=== PATIENT | male | born 1985 ===

== ENCOUNTER 2017-03-05 19:52 | Emergency (ER) | payer MEDICAID ==
[2017-03-05 19:52] VITALS: BMI 27.2
[2017-03-05 19:57] VITALS: BP 126/87; PULSE 80; RESP 16; TEMP 98.2; O2SAT 95
--- NOTE | 2017-03-05 20:24 | ED PDOC ---
Arrival/HPI - General Chief Complaint: Abnormal Skin Integrity Time Seen by Provider: 03/05/17 20:04 Historian: Patient - History of Present Illness Narrative History of Present Illness (Text): 03/05/17 20:21 31 y.o. male who comes to the emergency department with an itchy rash in the groin x 2 weeks. He says it started when he was in [place] a few weeks ago and it was hot and he had tight clothing. No abd pain or fever or urinary symptoms. He also says he began to have pimples in the area that he popped and put neosporin. Time/Duration: > week Past Medical History - Infectious Disease Hx of Infectious Diseases: None - Tetanus Immunization Tetanus Immunization: Up to Date - Past Medical History Past Medical History: No Previous - Cardiac Hx Cardiac Disorders: No - Pulmonary Hx Respiratory Disorders: No Hx Asthma: Yes - Neurological Hx Migraine: Yes - HEENT Hx HEENT Disorder: No - Renal Hx Renal Disorder: No - Endocrine/Metabolic Hx Endocrine Disorders: No - Hematological/Oncological Hx Blood Disorders: No - Integumentary Hx Dermatological Disorder: No - Musculoskeletal/Rheumatological Hx Musculoskeletal Disorders: Yes Hx Herniated Disk: Yes - Gastrointestinal Hx Gastrointestinal Disorders: Yes (GASTROENTERITIS) - Genitourinary/Gynecological Hx Genitourinary Disorders: No - Psychiatric Hx Psychophysiologic Disorder: No Hx Substance Use: No - Past Surgical History Past Surgical History: No Previous - Anesthesia Hx Anesthesia: No Hx Anesthesia Reactions: No Hx Malignant Hyperthermia: No - Suicidal Assessment Feels Threatened In Home Enviroment: No Family/Social History Family/Social History: Unknown Family HX Smoking Status: Heavy Smoker > 10 Cigarettes Daily Hx Alcohol Use: Yes (quit) Hx Substance Use: No Substance used: Marijuana Hx Substance Use Treatment: No Allergies/Home Meds Allergies/Adverse Reactions: Allergies No Known Allergies Allergy (Verified 03/05/17 19:53) Review of Systems - Review of Systems Constitutional: absent: Fevers Gastrointestinal: absent: Abdominal Pain, Nausea, Vomiting Genitourinary Male: absent: Dysuria Skin: Rash, Pruritis Physical Exam Vital Signs Temp Pulse Resp BP Pulse Ox 03/05/17 19:56 98.2 F 80 16 126/87 95 Temperature: Afebrile Blood Pressure: Normal Pulse: Regular Respiratory Rate: Normal Appearance: Positive for: Well-Appearing, Non-Toxic, Comfortable Pain Distress: None Mental Status: Positive for: Alert and Oriented X 3 - Systems Exam Head: Present: Atraumatic, Normocephalic Abdomen: No: Tenderness, Distention Genitourinary Male: Present: Normal External Genitalia, Other (groin area of dry rash c/w tinea and few small areas of folliculits but no erythema or warmth or swelling or tenderness) Medical Decision Making ED Course and Treatment: 03/05/17 20:24 Findings consistnent with tinea cruris and mild folliculitis - will d/c on topical antifungal and bactroban. Disposition/Present on Arrival - Present on Arrival Any Indicators Present on Arrival: No History of DVT/PE: No History of Uncontrolled Diabetes: No Urinary Catheter: No History of Decub. Ulcer: No History Surgical Site Infection Following: None - Disposition Have Diagnosis and Disposition been Completed?: Yes Diagnosis: Tinea cruris, Folliculitis Disposition: HOME/ ROUTINE Disposition Time: 20:30 Patient Plan: Discharge Condition: GOOD Discharge Instructions (ExitCare): Hai Sagastume (ED) Additional Instructions: Avoid tight clothing/underwear around groin and keep area dry. Apply topical medications as prescribed. Follow up with your primary care doctor. Return to the emergency department if any new concerning symptoms. Prescriptions: Ketoconazole 2% Cr [Nizoral] 1 cre EXT BID #30 gm Mupirocin 2% Cream [Bactroban Cream] 1 cre TOP BID #30 gm Referrals: Juhi Akers DO [Primary Care Provider] - Follow up with primary
== END 2017-03-05 20:45 | disposition home or self-care (01) ==
LOC: ED 19:52
DX: B35.6 Tinea cruris (principal); L73.9 Follicular disorder, unspecified

== ENCOUNTER 2017-08-22 08:18 | Emergency (ER) | payer MEDICAID ==
[2017-08-22 08:18] VITALS: BMI 27.2
--- NOTE | 2017-08-22 08:57 | ED PDOC ---
Arrival/HPI - General Chief Complaint: Cough, Cold, Congestion Time Seen by Provider: 08/22/17 08:41 Historian: Patient - History of Present Illness Narrative History of Present Illness (Text): 08/22/17 08:54 A 31 year old male with no significant past medical history, presents to the emergency department with 4 day duration cough, congestions The patient notes that yesterday he developed a dry cough. pt reports sore throat, which is mild. The patient denies fevers, chills, headache, shortness of breath, dyspnea on exertion, abdominal pain, nausea, vomiting, diarrhea, back pain, neck pain, urinary/bowel changes, or any other complaint. 08/22/17 09:50 Time/Duration: Other (4 Days) Symptom Onset: Sudden Symptom Course: Unchanged Activities at Onset: Rest, Light Context: Work Past Medical History - Provider Review Nursing Documentation Reviewed: Yes - Infectious Disease Hx of Infectious Diseases: None - Tetanus Immunization Tetanus Immunization: Up to Date - Past Medical History Past Medical History: No Previous - Cardiac Hx Cardiac Disorders: No - Pulmonary Hx Respiratory Disorders: Yes Hx Asthma: Yes - Neurological Hx Neurological Disorder: Yes Hx Migraine: Yes - HEENT Hx HEENT Disorder: No - Renal Hx Renal Disorder: No - Endocrine/Metabolic Hx Endocrine Disorders: No - Hematological/Oncological Hx Blood Disorders: No - Integumentary Hx Dermatological Disorder: No - Musculoskeletal/Rheumatological Hx Musculoskeletal Disorders: Yes Hx Herniated Disk: Yes - Gastrointestinal Hx Gastrointestinal Disorders: No - Genitourinary/Gynecological Hx Genitourinary Disorders: No - Psychiatric Hx Psychophysiologic Disorder: No Hx Substance Use: No - Past Surgical History Past Surgical History: No Previous - Anesthesia Hx Anesthesia: No Hx Anesthesia Reactions: No Hx Malignant Hyperthermia: No - Suicidal Assessment Feels Threatened In Home Enviroment: No Family/Social History - Physician Review Nursing Documentation Reviewed: Yes Family/Social History: No Known Family HX Smoking Status: Heavy Smoker > 10 Cigarettes Daily Hx Alcohol Use: No Hx Substance Use: No Substance used: Marijuana Hx Substance Use Treatment: No Allergies/Home Meds Allergies/Adverse Reactions: Allergies No Known Allergies Allergy (Verified 08/22/17 08:27) Home Medications: Home Meds Medication Instructions Recorded Confirmed No Known Home Med 08/22/17 08/22/17 Review of Systems - Physician Review All systems were reviewed & negative as marked: Yes - Review of Systems Constitutional: absent: Fevers, Night Sweats ENT: Sore Throat Respiratory: Cough. absent: SOB Cardiovascular: Chest Pain. absent: WHITE Gastrointestinal: absent: Abdominal Pain, Stool Changes, Diarrhea, Nausea, Vomiting Genitourinary Male: absent: Urinary Output Changes Musculoskeletal: absent: Back Pain, Neck Pain Neurological: Dizziness. absent: Headache Physical Exam Vital Signs Reviewed: Yes Vital Signs Temp Pulse Resp BP Pulse Ox 08/22/17 09:30 98.9 F 74 20 132/78 96 08/22/17 08:27 97.8 F 77 16 117/85 97 Temperature: Afebrile Blood Pressure: Normal Pulse: Regular Respiratory Rate: Normal Appearance: Positive for: Well-Appearing, Non-Toxic, Comfortable Pain Distress: None Mental Status: Positive for: Alert and Oriented X 3 - Systems Exam Head: Present: Atraumatic, Normocephalic Pupils: Present: PERRL Extroacular Muscles: Present: EOMI Conjunctiva: Present: Normal Mouth: Present: Moist Mucous Membranes Neck: Present: Normal Range of Motion Respiratory/Chest: Present: Clear to Auscultation, Good Air Exchange. No: Respiratory Distress, Accessory Muscle Use Cardiovascular: Present: Regular Rate and Rhythm, Normal S1, S2. No: Murmurs Abdomen: Present: Normal Bowel Sounds. No: Tenderness, Distention, Peritoneal Signs Back: Present: Normal Inspection Upper Extremity: Present: Normal Inspection. No: Cyanosis, Edema Lower Extremity: Present: Normal Inspection. No: Edema Neurological: Present: GCS=15, CN II-XII Intact, Speech Normal Skin: Present: Warm, Dry, Normal Color. No: Rashes Psychiatric: Present: Alert, Oriented x 3, Normal Insight, Normal Concentration Medical Decision Making ED Course and Treatment: 08/22/17 08:58 Impression: A 31 year old male presents with 4 day duration chest pain, cough, dizziness, and sore throat. Plan: -- Chest X-ray -- Reassess and disposition Prior Visits: Notes and results from previous visits were reviewed. Patient was last seen in the emergency department on 03/05/17. The patient was seen for a rash on the groin. The patient was discharged home on Nizoral and Bactroban Cream. He was advised to follow up with his PMD. Progress Notes: 08/22/17 10:54 pt on phone in nad. speaking full sentneces, strep neg. vital stable. perc neg. cxr neg. stable for d/c outpt f/u and return precautions - Lab Interpretations Lab Results: Lab Results 08/22/17 10:12: Grp A Beta Strep Ag Negative - RAD Interpretation Radiology Orders: 08/22/17 08:45 CHEST TWO VIEWS (PA/LAT) [RAD] Stat - Scribe Statement The provider has reviewed the documentation as recorded by the Scribe Cecilia Marr Provider Scribe Attestation: All medical record entries made by the Scribe were at my direction and personally dictated by me. I have reviewed the chart and agree that the record accurately reflects my personal performance of the history, physical exam, medical decision making, and the department course for this patient. I have also personally directed, reviewed, and agree with the discharge instructions and disposition. Disposition/Present on Arrival - Present on Arrival Any Indicators Present on Arrival: No History of DVT/PE: No History of Uncontrolled Diabetes: No Urinary Catheter: No History of Decub. Ulcer: No History Surgical Site Infection Following: None - Disposition Have Diagnosis and Disposition been Completed?: Yes Diagnosis: Viral syndrome Disposition: HOME/ ROUTINE Disposition Time: 11:00 Patient Problems: Current Active Problems Problem Status Onset Viral syndrome Acute Condition: STABLE Discharge Instructions (ExitCare): Viral Syndrome (ED) Additional Instructions: please follow up with your doctor. return to er with worsening symptoms or concerns. Referrals: [facility] [Outside] - Follow up with primary [facility] [place] [Outside] - Follow up with primary Forms: [employer] (American)
--- NOTE | 2017-08-22 10:49 | RAD ---
HISTORY: COMPARISON: 08/23/2015. TECHNIQUE: Chest PA and lateral FINDINGS: LINES AND TUBES: None. LUNG AND PLEURA: The lungs are well inflated and clear. HEART AND MEDIASTINUM: The heart is not enlarged. The hilar and mediastinal contours are within normal limits. SKELETAL STRUCTURES: The bony structures are within normal limits for the patient's age. VISUALIZED UPPER ABDOMEN: Normal. OTHER FINDINGS: None. IMPRESSION: No active pulmonary disease.
[2017-08-22 11:15] VITALS: BP 128/76; RESP 18
[2017-08-22 11:25] VITALS: O2SAT 96
[2017-08-22 11:27] VITALS: PULSE 73; TEMP 98
== END 2017-08-22 11:00 | disposition home or self-care (01) ==
LOC: ED 08:18
DX: B34.9 Viral infection, unspecified (principal); J45.909 Unspecified asthma, uncomplicated; F17.210 Nicotine dependence, cigarettes, uncomplicated

== ENCOUNTER 2017-11-20 21:02 | Emergency (ER) | payer MEDICAID ==
[2017-11-20 21:19] VITALS: BP 114/73; PULSE 80; RESP 20; TEMP 98; O2SAT 97
[2017-11-20 21:20] VITALS: BMI 27.1
--- NOTE | 2017-11-20 21:27 | ED PDOC ---
Arrival/HPI - General Historian: Patient <Thalia Grossman - Last Filed: 11/20/17 22:43> - History of Present Illness Time/Duration: < week Symptom Onset: Gradual Quality: Aching <Davy Lizarraga DO - Last Filed: 11/21/17 04:19> - General Chief Complaint: Chest Pain Time Seen by Provider: 11/20/17 21:12 - History of Present Illness Narrative History of Present Illness (Text): CC: chest pressure midsternal 31M presents with midsternal chest pain that started two days ago. Patient states it feels like a pressure and is worried because hi mother from [place] at 61 and his father was recently hospitalized for CT. Patient states the pressure is always there and never leaves, it gets a little better, but stays. Patient also admits to left flank pain for 2 weeks, with dysuria for one day. Patient denies hematuria, penile discharge, oliguria, history of nephrolithiasis. PMH: lumbar disc herniations (chronic back pain) PSH: none Social History:3-4 cigarettes a day, no etoh, no illicit drugs Family History: mother and father had CT allergies: NKDA (Thalia Grossman) Past Medical History - Infectious Disease Hx of Infectious Diseases: None - Tetanus Immunization Tetanus Immunization: Up to Date - Past Medical History Past Medical History: No Previous - Cardiac Hx Cardiac Disorders: No - Pulmonary Hx Respiratory Disorders: Yes Hx Asthma: Yes - Neurological Hx Neurological Disorder: Yes Hx Migraine: Yes - HEENT Hx HEENT Disorder: No - Renal Hx Renal Disorder: No - Endocrine/Metabolic Hx Endocrine Disorders: No - Hematological/Oncological Hx Blood Disorders: No - Integumentary Hx Dermatological Disorder: No - Musculoskeletal/Rheumatological Hx Musculoskeletal Disorders: Yes Hx Herniated Disk: Yes - Gastrointestinal Hx Gastrointestinal Disorders: No - Genitourinary/Gynecological Hx Genitourinary Disorders: No - Psychiatric Hx Psychophysiologic Disorder: No Hx Substance Use: No (Pt denied) - Past Surgical History Past Surgical History: No Previous - Anesthesia Hx Anesthesia: No Hx Anesthesia Reactions: No Hx Malignant Hyperthermia: No - Suicidal Assessment Feels Threatened In Home Enviroment: No <Thalia Grossman - Last Filed: 11/20/17 22:43> - Provider Review Nursing Documentation Reviewed: Yes <Davy Lizarraga DO - Last Filed: 11/21/17 04:19> Family/Social History - Physician Review Nursing Documentation Reviewed: Yes Family/Social History: No Known Family HX Smoking Status: Light Smoker < 10 Cigarettes Daily Hx Alcohol Use: No Hx Substance Use: No (Pt denied) Substance used: Marijuana Hx Substance Use Treatment: No <Thalia Grossman - Last Filed: 11/20/17 22:43> Allergies/Home Meds <Thalia Grossman - Last Filed: 11/20/17 22:43> <Davy Lizarraga DO - Last Filed: 11/21/17 04:19> Allergies/Adverse Reactions: Allergies No Known Allergies Allergy (Verified 11/20/17 21:09) Home Medications: Home Meds Medication Instructions Recorded Confirmed No Known Home Med 08/22/17 11/20/17 Review of Systems - Physician Review All systems were reviewed & negative as marked: Yes - Review of Systems Constitutional: Normal. absent: Fatigue, Weight Change, Fevers Eyes: Normal. absent: Vision Changes, Photophobia, Eye Pain Respiratory: SOB. absent: Cough, Sputum, Wheezing Cardiovascular: Chest Pain. absent: Palpitations, Edema, Calf Pain, Orthopnea Gastrointestinal: Nausea. absent: Abdominal Pain, Stool Changes, Constipation, Diarrhea, Vomiting, Appetite Changes, Hematochezia, Hematemesis, Anorexia, Food Intolerance Musculoskeletal: Back Pain (left flank pain and chronic lumbar herniation). absent: Arthralgias Skin: Normal Endocrine: Normal Hemo/Lymphatic: Normal Psychiatric: Normal <Thalia Grossman - Last Filed: 11/20/17 22:43> Physical Exam Temperature: Afebrile Blood Pressure: Normal Pulse: Regular Respiratory Rate: Normal Appearance: Positive for: Comfortable Mental Status: Positive for: Alert and Oriented X 3 - Systems Exam Head: Present: Atraumatic, Normocephalic Pupils: Present: PERRL Extroacular Muscles: Present: EOMI Conjunctiva: Present: Normal. No: Injected, Icteric Pharnyx: Present: Normal. No: ERYTHEMA, EXUDATE, TONSILS ENLARGED, Uvular Deviation Nose (External): Present: Atraumatic. No: Abrasion, Contusion, Laceration Neck: Present: Normal Range of Motion, Trachea Midline. No: JVD Respiratory/Chest: Present: Clear to Auscultation, Good Air Exchange. No: Respiratory Distress Cardiovascular: Present: Regular Rate and Rhythm, Normal S1, S2. No: Murmurs Upper Extremity: Present: Normal Inspection, Normal ROM, Capillary Refill < 2s Lower Extremity: Present: Normal Inspection, Normal ROM, Capillary Refill < 2 s. No: Edema Neurological: Present: GCS=15, CN II-XII Intact Skin: Present: Warm, Dry, Normal Color. No: Rashes Psychiatric: Present: Alert, Oriented x 3, Normal Insight, Normal Concentration <Thalia Grossman - Last Filed: 11/20/17 22:43> Vital Signs Reviewed: Yes <Davy Lizarraga DO - Last Filed: 11/21/17 04:19> Vital Signs Temp Pulse Resp BP Pulse Ox 11/20/17 21:18 98.0 F 80 20 114/73 97 Medical Decision Making - Lab Interpretations I have reviewed the lab results: Yes Interpretation: All labs normal (urinalysis is negative for UTI) - EKG Interpretation Interpreted by ED Physician: Yes Type: 12 lead EKG (NSR @ 80bpm) <Thalia Grossman - Last Filed: 11/20/17 22:43> <Davy Lizarraga DO - Last Filed: 11/21/17 04:19> ED Course and Treatment: 11/20/17 21:30 CXR EKG: NSR @80bpm UA (Thalia Grossman) 11/20/17 22:09 31 year old male presents to the Emergency department for chest discomfort. In agreement with resident note, which includes further HPI details. Patient was seen and evaluated with resident, came up with plan and treatment together. (Davy Lizarraga DO) - Lab Interpretations Lab Results: Lab Results 11/20/17 21:42: Urine Color Yellow, Urine Appearance Clear, Urine pH 7.0, Ur Specific [place] 1.020, Urine Protein Negative, Urine Glucose (UA) Negative, Urine Ketones Negative, Urine Blood Negative, Urine Nitrate Negative, Urine Bilirubin Negative, Urine Urobilinogen 0.2, Ur Leukocyte Esterase Negative - RAD Interpretation Radiology Orders: 11/20/17 21:26 CXR [CHEST PORTABLE] [RAD] Stat <Thalia Grossman - Last Filed: 11/20/17 22:43> - PA / DONOR RECRUITMENT MANAGER / Resident Statement MACIE has reviewed & agrees with the documentation as recorded. MACIE has examined the patient and agrees with the treatment plan. - Scribe Statement The provider has reviewed the documentation as recorded by the Scribe <Davy Lizarraga DO - Last Filed: 11/21/17 04:19> - Scribe Statement Namita Bautista. All medical record entries made by the Scribe were at my direction and personally dictated by me. I have reviewed the chart and agree that the record accurately reflects my personal performance of the history, physical exam, medical decision making, and the department course for this patient. I have also personally directed, reviewed, and agree with the discharge instructions and disposition. (Davy Lizarraga DO) Disposition/Present on Arrival - Present on Arrival Any Indicators Present on Arrival: No History of DVT/PE: No History of Uncontrolled Diabetes: No Urinary Catheter: No History of Decub. Ulcer: No History Surgical Site Infection Following: None - Disposition Have Diagnosis and Disposition been Completed?: No Disposition Time: 22:43 Patient Plan: Discharge <Thalia Grossman - Last Filed: 11/20/17 22:43> - Disposition Disposition Time: 22:10 <Davy Lizarraga DO - Last Filed: 11/21/17 04:19> - Disposition Diagnosis: Atypical chest pain Disposition: HOME/ ROUTINE Condition: GOOD Discharge Instructions (ExitCare): Chest Pain (ED) Referrals: Enmanuel Marmolejo, [Primary Care Provider] - Follow up with primary Forms: [employer] (Macedonian)
[2017-11-20 21:46] LABS: URINE BILIRUBIN NEGATIVE (NEGATIVE); URINE BLOOD NEGATIVE (NEGATIVE); URINE GLUCOSE (UA) NEGATIVE (NEGATIVE); URINE LEUKOCYTE ESTERASE NEGATIVE Leu/uL (NEGATIVE); URINE NITRATE NEGATIVE (NEGATIVE); URINE PROTEIN NEGATIVE mg/dL (<30 mg/dL); URINE UROBILINOGEN 0.2 E.U./dL (<1 E.U./dL)
[2017-11-20 21:50] LABS: URINE APPEARANCE CLEAR (CLEAR); URINE COLOR YELLOW (YELLOW)
--- NOTE | 2017-11-21 08:52 | RAD ---
HISTORY: chest pain COMPARISON: 08/22/2027. FINDINGS: LUNGS: The lungs are well inflated and clear. PLEURA: No significant pleural effusion identified, no pneumothorax apparent. CARDIOVASCULAR: Normal. OSSEOUS STRUCTURES: No significant abnormalities. VISUALIZED UPPER ABDOMEN: Normal. OTHER FINDINGS: None. IMPRESSION: No active pulmonary disease.
--- NOTE | 2017-11-22 16:13 | CARD ---
APPROVED REPORT EKG Measurement Heart [id number] HI [id number] <Conclusion> Normal sinus rhythm Normal ECG
== END 2017-11-20 22:54 | disposition home or self-care (01) ==
LOC: ED 21:02
DX: R07.89 Other chest pain (principal)

== ENCOUNTER 2018-04-21 17:41 | Emergency (ER) | payer MEDICAID ==
[2018-04-21 18:15] VITALS: BMI 26.5
[2018-04-21 18:20] VITALS: RESP 16; O2SAT 98
--- NOTE | 2018-04-21 19:02 | ED PDOC ---
Arrival/HPI - General Chief Complaint: Back Pain Time Seen by Provider: 04/21/18 17:44 Historian: Patient - History of Present Illness Narrative History of Present Illness (Text): 04/21/18 18:32 32yo male with pmhx of herniated disc who present with complaint of back pain x 3weeks and nonproductive cough x 3days. States back pain is worse with deep inspiration, causing him to have SOB. He states he have chronic back pain, but has become worse within the past few days. He did not take any medication. Also report dysuria 2daysa go, that resolved. Denies fever, chills, abdominal pain, diaphoresis, chest pain, sick contact, urinary/fecal incontinence, focal weakness, any other complaint Past Medical History - Provider Review Nursing Documentation Reviewed: Yes - Infectious Disease Hx of Infectious Diseases: None - Tetanus Immunization Tetanus Immunization: Up to Date - Past Medical History Past Medical History: No Previous - Cardiac Hx Cardiac Disorders: No - Pulmonary Hx Respiratory Disorders: Yes Hx Asthma: Yes - Neurological Hx Neurological Disorder: Yes Hx Migraine: Yes - HEENT Hx HEENT Disorder: No - Renal Hx Renal Disorder: No - Endocrine/Metabolic Hx Endocrine Disorders: No - Hematological/Oncological Hx Blood Disorders: No - Integumentary Hx Dermatological Disorder: No - Musculoskeletal/Rheumatological Hx Musculoskeletal Disorders: Yes Hx Herniated Disk: Yes - Gastrointestinal Hx Gastrointestinal Disorders: No - Genitourinary/Gynecological Hx Genitourinary Disorders: No - Psychiatric Hx Psychophysiologic Disorder: No Hx Substance Use: No (Pt denied) - Past Surgical History Past Surgical History: No Previous - Anesthesia Hx Anesthesia: No Hx Anesthesia Reactions: No Hx Malignant Hyperthermia: No - Suicidal Assessment Feels Threatened In Home Enviroment: No Family/Social History - Physician Review Nursing Documentation Reviewed: Yes Family/Social History: Unknown Family HX Smoking Status: Heavy Smoker > 10 Cigarettes Daily Hx Alcohol Use: No Hx Substance Use: No (Pt denied) Substance used: Marijuana Hx Substance Use Treatment: No Allergies/Home Meds Allergies/Adverse Reactions: Allergies No Known Allergies Allergy (Verified 11/20/17 21:09) Review of Systems - Physician Review All systems were reviewed & negative as marked: Yes - Review of Systems Constitutional: Normal Eyes: Normal ENT: Normal Respiratory: Cough Cardiovascular: Normal Gastrointestinal: Normal Genitourinary Male: Normal Musculoskeletal: Back Pain Skin: Normal Neurological: Normal Endocrine: Normal Hemo/Lymphatic: Normal Psychiatric: Normal Physical Exam Vital Signs Reviewed: Yes Vital Signs Temp Pulse Resp BP Pulse Ox 04/21/18 18:15 98.4 F 95 H 16 148/82 98 Temperature: Afebrile Blood Pressure: Normal Pulse: Regular Respiratory Rate: Normal Appearance: Positive for: Well-Appearing, Non-Toxic, Comfortable Pain Distress: None Mental Status: Positive for: Alert and Oriented X 3 - Systems Exam Head: Present: Atraumatic, Normocephalic Pupils: Present: PERRL Extroacular Muscles: Present: EOMI Conjunctiva: Present: Normal Mouth: Present: Moist Mucous Membranes Neck: Present: Normal Range of Motion Respiratory/Chest: Present: Clear to Auscultation, Good Air Exchange. No: Respiratory Distress, Accessory Muscle Use, Wheezes, Decreased Breath Sounds, Rales, Retracting, Rhonchi Cardiovascular: Present: Regular Rate and Rhythm, Normal S1, S2. No: Murmurs Abdomen: No: Tenderness, Distention, Peritoneal Signs Back: Present: Paraspinal Tenderness (B/l paraspinous tenderness). No: CVA Tenderness, Midline Tenderness, Pain with Leg Raise Upper Extremity: Present: Normal Inspection. No: Cyanosis, Edema Lower Extremity: Present: Normal Inspection. No: Edema Neurological: Present: GCS=15, CN II-XII Intact, Speech Normal Skin: Present: Warm, Dry, Normal Color. No: Rashes Psychiatric: Present: Alert, Oriented x 3, Normal Insight, Normal Concentration Medical Decision Making ED Course and Treatment: 04/21/18 19:22 Pt in ED for stated history. He was ambulatory and in neurologically intact. His pain was controlled in ED with medication. CXR NAD UA pending EKG NSR @83bpm 04/21/18 19:53 UA was negative. Result was DW the pt. His pain was reproducible. He will be Dc home with NSAID and muscle relaxer. Referred to his PMD. - Lab Interpretations Lab Results: Lab Results 04/21/18 19:45: Urine Color Yellow, Urine Appearance Sl cloudy, Urine pH 7.0, Ur Specific [place] 1.020, Urine Protein Negative, Urine Glucose (UA) Negative, Urine Ketones Trace H, Urine Blood Negative, Urine Nitrate Negative, Urine Bilirubin Negative, Urine Urobilinogen 0.2, Ur Leukocyte Esterase Negative - RAD Interpretation Radiology Orders: 04/21/18 18:17 CHEST TWO VIEWS (PA/LAT) [RAD] Stat - Medication Orders Current Medication Orders: Discontinued Medications Cyclobenzaprine HCl (Flexeril) 10 mg PO STAT STA Stop: 04/21/18 18:20 Last Admin: 04/21/18 19:08 Dose: 10 mg Ketorolac Tromethamine (Toradol) 60 mg IM STAT STA Stop: 04/21/18 18:19 Last Admin: 04/21/18 19:07 Dose: 60 mg MAR Pain Assessment Document 04/21/18 19:07 MS (Rec: 04/21/18 19:07 MS [id number]) Pain Reassessment Is this a pain reassessment? No Sleep Is patient sleeping during reassessment? No Presence of Pain Presence of Pain Yes Pain Scale Used Pain Scale Used Numeric Location Left, Right or Bilateral Left Upper or Lower Lower Pain Location Body Site Back Description Description Constant Intensity of Pain at present 7 IM Administration Charges Document 04/21/18 19:07 MS (Rec: 04/21/18 19:07 MS [id number]) Injection Site MAR Injection Site Right Deltoid Charges for Administration # of IM Administrations 1 Disposition/Present on Arrival - Present on Arrival Any Indicators Present on Arrival: No History of DVT/PE: No History of Uncontrolled Diabetes: No Urinary Catheter: No History of Decub. Ulcer: No History Surgical Site Infection Following: None - Disposition Have Diagnosis and Disposition been Completed?: Yes Diagnosis: Back pain, Cough Disposition: HOME/ ROUTINE Disposition Time: 19:55 Patient Plan: Discharge Patient Problems: Current Active Problems Problem Status Onset Back pain Acute Cough Acute Condition: STABLE Discharge Instructions (ExitCare): Cough in Adults, Low Back Pain in Adults Additional Instructions: Follow up with your doctor/orthopedist Return to ED for any new or worsening symptoms Prescriptions: Benzonatate [Tessalon Perle] 100 mg PO TID #30 capsule Cyclobenzaprine [Cyclobenzaprine HCl] 10 mg PO TID #12 tab Naproxen [Naprosyn] 500 mg PO BID #20 tablet Referrals: Juhi Akers DO [Primary Care Provider] - Follow up with primary Forms: [employer] (Azerbaijani)
[2018-04-21 19:53] LABS: URINE APPEARANCE SL CLOUDY (CLEAR); URINE BILIRUBIN NEGATIVE (NEGATIVE); URINE BLOOD NEGATIVE (NEGATIVE); URINE COLOR YELLOW (YELLOW); URINE GLUCOSE (UA) NEGATIVE (NEGATIVE); URINE LEUKOCYTE ESTERASE NEGATIVE Leu/uL (NEGATIVE); URINE PROTEIN NEGATIVE mg/dL (<30 mg/dL); URINE UROBILINOGEN 0.2 E.U./dL (<1 E.U./dL)
[2018-04-21 20:32] VITALS: BP 138/87; PULSE 88; TEMP 98.1
--- NOTE | 2018-04-22 08:26 | RAD ---
HISTORY: cough COMPARISON: Portable chest 11/20/2017. TECHNIQUE: Chest PA and lateral FINDINGS: LUNGS: No active pulmonary disease. PLEURA: No significant pleural effusion identified. No pneumothorax apparent. CARDIOVASCULAR: Normal. OSSEOUS STRUCTURES: No significant abnormalities. VISUALIZED UPPER ABDOMEN: Normal. OTHER FINDINGS: None. IMPRESSION: No interval acute cardiopulmonary disease appreciated.
--- NOTE | 2018-04-22 13:06 | CARD ---
APPROVED REPORT EKG Measurement Heart [id number] <Conclusion> Normal sinus rhythm Normal ECG
== END 2018-04-21 20:29 | disposition home or self-care (01) ==
LOC: ED 17:41
DX: M54.9 Dorsalgia, unspecified (principal); R05 Cough; F17.210 Nicotine dependence, cigarettes, uncomplicated
CPT/HCPCS: 71046; 81003; 93005; 96372; 99282; J1885

== ENCOUNTER 2018-05-26 14:35 | Emergency (ER) | payer MEDICAID ==
[2018-05-26 14:40] VITALS: BMI 25.8
[2018-05-26 14:43] VITALS: RESP 18
--- NOTE | 2018-05-26 14:56 | ED PDOC ---
Arrival/HPI - General Chief Complaint: Dental Pain Time Seen by Provider: 05/26/18 14:45 Historian: Patient - History of Present Illness Narrative History of Present Illness (Text): 05/26/18 14:52 This 32 yo male presents to this ED c/o left upper toothache x 1 day. Patient stated he had had this pain before. Patient took Motrin without significant relief of pain. Patient feels pain is worsening. Patient denies fever, dysphagia, dizziness, AUGUST, or abnormal gait. Time/Duration: Other (see hpi) Context: Home Past Medical History - Provider Review Nursing Documentation Reviewed: Yes - Infectious Disease Hx of Infectious Diseases: None - Tetanus Immunization Tetanus Immunization: Up to Date - Past Medical History Past Medical History: No Previous - Cardiac Hx Cardiac Disorders: No - Pulmonary Hx Respiratory Disorders: Yes Hx Asthma: Yes - Neurological Hx Neurological Disorder: Yes Hx Migraine: Yes - HEENT Hx HEENT Disorder: No - Renal Hx Renal Disorder: No - Endocrine/Metabolic Hx Endocrine Disorders: No - Hematological/Oncological Hx Blood Disorders: No - Integumentary Hx Dermatological Disorder: No - Musculoskeletal/Rheumatological Hx Musculoskeletal Disorders: Yes Hx Herniated Disk: Yes - Gastrointestinal Hx Gastrointestinal Disorders: No - Genitourinary/Gynecological Hx Genitourinary Disorders: No - Psychiatric Hx Psychophysiologic Disorder: No Hx Substance Use: No (Pt denied) - Past Surgical History Past Surgical History: No Previous - Anesthesia Hx Anesthesia: No Hx Anesthesia Reactions: No Hx Malignant Hyperthermia: No - Suicidal Assessment Feels Threatened In Home Enviroment: No Family/Social History - Physician Review Nursing Documentation Reviewed: Yes Family/Social History: Other (noncontributory) Smoking Status: Heavy Smoker > 10 Cigarettes Daily Hx Alcohol Use: No Hx Substance Use: No (Pt denied) Substance used: Marijuana Hx Substance Use Treatment: No Allergies/Home Meds Allergies/Adverse Reactions: Allergies No Known Allergies Allergy (Verified 11/20/17 21:09) Review of Systems - Review of Systems Constitutional: Normal. absent: Fatigue, Weight Change, Fevers Eyes: Normal ENT: Other (toothache) Respiratory: Normal Cardiovascular: Normal Gastrointestinal: Normal Genitourinary Male: Normal Musculoskeletal: Normal Skin: Normal Neurological: Normal Endocrine: Normal Hemo/Lymphatic: Normal Psychiatric: Normal Physical Exam Vital Signs Temp Pulse Resp BP Pulse Ox 05/26/18 14:43 98.8 F 87 18 118/87 97 Temperature: Afebrile Blood Pressure: Normal Pulse: Regular Respiratory Rate: Normal Appearance: Positive for: Well-Appearing, Non-Toxic, Comfortable Pain Distress: None Mental Status: Positive for: Alert and Oriented X 3 - Systems Exam Head: Present: Atraumatic, Normocephalic Pupils: Present: PERRL Extroacular Muscles: Present: EOMI Conjunctiva: Present: Normal Ears: Present: Normal, NORMAL TM, Normal Canal. No: Erythema, TM Bulging, Fluid , TM Perf Mouth: Present: Moist Mucous Membranes, Normal Lips, Normal Tounge, Other ((+) gum swelling near area of tooth #16). No: Drooling, Trismus Pharnyx: Present: Normal. No: ERYTHEMA, EXUDATE, TONSILS ENLARGED Nose (External): Present: Atraumatic Nose (Internal): Present: Normal Inspection Neck: Present: Normal Range of Motion, Trachea Midline. No: Meningeal Signs, MIDLINE TENDERNESS, Paraspinal Tenderness, Lymphadenopathy Upper Extremity: Present: Normal Inspection, Normal ROM Lower Extremity: Present: Normal Inspection, Normal ROM Neurological: Present: GCS=15, CN II-XII Intact, Speech Normal, Motor Func Grossly Intact, Normal Sensory Function, Normal Cerebellar Funct, Gait Normal, Memory Normal Skin: Present: Warm, Dry, Normal Color. No: Rashes Psychiatric: Present: Alert, Oriented x 3, Normal Insight, Normal Concentration Medical Decision Making ED Course and Treatment: 05/26/18 14:57 Re-evaluation. Patient feels better. Discussed results and plan with patient who expresses understanding. All questions answered and there is agreement with the plan to discharge home with instructions. Patient stable for discharge. Return if symptoms persist or worsen. Re-evaluation Time: 14:57 Reassessment Condition: Re-examined, Improved Disposition/Present on Arrival - Present on Arrival Any Indicators Present on Arrival: No History of DVT/PE: No History of Uncontrolled Diabetes: No Urinary Catheter: No History of Decub. Ulcer: No History Surgical Site Infection Following: None - Disposition Have Diagnosis and Disposition been Completed?: Yes Diagnosis: Toothache Disposition: HOME/ ROUTINE Disposition Time: 14:58 Patient Plan: Discharge Condition: GOOD Discharge Instructions (ExitCare): Dental Pain (DC) Additional Instructions: Call private dentist for revaluation in 1-2 day. Take medication as instructed. Return to emergency if symptoms worsen. Prescriptions: Chlorhexidine 0.12% [Peridex] 15 ml PO BID #1 bottle Clindamycin [Cleocin] 300 mg PO QID #28 cap Naproxen 500 mg PO BID PRN #14 tablet PRN Reason: Pain, Severe (8-10) Referrals: Lianna Alberts MD [Staff Provider] - Follow up with primary [facility] [Outside] - Follow up with primary Forms: [employer] (Romanian), WORK NOTE
[2018-05-26 16:27] VITALS: BP 118/85; PULSE 85; TEMP 98; O2SAT 100
== END 2018-05-26 15:26 | disposition home or self-care (01) ==
LOC: ED 14:35
DX: K08.89 Other specified disorders of teeth and supporting structures (principal); F17.210 Nicotine dependence, cigarettes, uncomplicated
CPT/HCPCS: 96372; 99283; J1885

== ENCOUNTER 2018-11-10 10:00 | Emergency (ER) | payer MEDICAID ==
[2018-11-10 10:08] VITALS: RESP 18; TEMP 98.2; BMI 28.3
--- NOTE | 2018-11-10 10:32 | ED PDOC ---
Arrival/HPI <Cheyenne Ritter - Last Filed: 11/14/18 17:09> - General Historian: Patient - History of Present Illness Narrative History of Present Illness (Text): 11/10/18 10:29 A 32 year old male presents to the emergency department complaining of lump to mid-sternal chest region for 4 days. Patient states he would usually develop a pimple in the same area and normally pops the pimples. This time he decided not too and would placed wet rags and warm compress on it. However, the lesion grew larger and developed redness. States he feels pain when he presses it. Patient notes also experiencing nausea 2 days ago, and sometimes having hot flashes, however denies any other complaints at this time. Ultrasound performed at bedside showed mid-sternal lesion to consist of heterogeneous material. PMD: Dr. Akers <Chuy Hannah - Last Filed: 11/20/18 23:55> - General Chief Complaint: Abnormal Skin Integrity Time Seen by Provider: 11/10/18 10:03 Past Medical History - Provider Review Nursing Documentation Reviewed: Yes - Travel History Have you recently traveled outside [place] w/in the past 3 mons?: No - Infectious Disease Hx of Infectious Diseases: None - Tetanus Immunization Tetanus Immunization: Up to Date - Past Medical History Past Medical History: No Previous - Cardiac Hx Cardiac Disorders: No - Pulmonary Hx Respiratory Disorders: Yes Hx Asthma: Yes - Neurological Hx Neurological Disorder: Yes Hx Migraine: Yes - HEENT Hx HEENT Disorder: No - Renal Hx Renal Disorder: No - Endocrine/Metabolic Hx Endocrine Disorders: No - Hematological/Oncological Hx Blood Disorders: No - Integumentary Hx Dermatological Disorder: No - Musculoskeletal/Rheumatological Hx Musculoskeletal Disorders: Yes Hx Herniated Disk: Yes - Gastrointestinal Hx Gastrointestinal Disorders: No - Genitourinary/Gynecological Hx Genitourinary Disorders: No - Psychiatric Hx Psychophysiologic Disorder: No Hx Substance Use: No (Pt denied) - Past Surgical History Past Surgical History: No Previous - Anesthesia Hx Anesthesia: No Hx Anesthesia Reactions: No Hx Malignant Hyperthermia: No - Suicidal Assessment Feels Threatened In Home Enviroment: No <Chuy Hannah - Last Filed: 11/20/18 23:55> Family/Social History - Physician Review Nursing Documentation Reviewed: Yes Family/Social History: No Known Family HX Smoking Status: Heavy Smoker > 10 Cigarettes Daily Hx Alcohol Use: No Hx Substance Use: No (Pt denied) Substance used: Marijuana Hx Substance Use Treatment: No <Chuy Hannah - Last Filed: 11/20/18 23:55> Allergies/Home Meds <Cheyenne Ritter - Last Filed: 11/14/18 17:09> <Chuy Hannah - Last Filed: 11/20/18 23:55> Allergies/Adverse Reactions: Allergies No Known Allergies Allergy (Verified 11/10/18 10:08) Home Medications: Home Meds Medication Instructions Recorded Confirmed Albuterol Sulfate [Ventolin Hfa] 1 puff IH PRN PRN 11/10/18 11/10/18 Review of Systems - Physician Review All systems were reviewed & negative as marked: Yes - Review of Systems Constitutional: Fevers (hot flashes) Gastrointestinal: Nausea Skin: Other (lump to mid-sternal chest region) <Chuy Hannah - Last Filed: 11/20/18 23:55> Physical Exam Vital Signs Temp Pulse Resp BP Pulse Ox 11/10/18 12:52 64 18 121/77 98 11/10/18 10:04 98.2 F 97 H 18 144/85 97 <Cheyenne Ritter - Last Filed: 11/14/18 17:09> Vital Signs Reviewed: Yes Vital Signs Temp Pulse Resp BP Pulse Ox 11/10/18 10:04 98.2 F 97 H 18 144/85 97 Temperature: Afebrile Blood Pressure: Normal Pulse: Regular Respiratory Rate: Normal Appearance: Positive for: Well-Appearing, Non-Toxic, Comfortable Pain Distress: None Mental Status: Positive for: Alert and Oriented X 3 - Systems Exam Head: Present: Atraumatic, Normocephalic Pupils: Present: PERRL Extroacular Muscles: Present: EOMI Conjunctiva: Present: Normal Mouth: Present: Moist Mucous Membranes Neck: Present: Normal Range of Motion Respiratory/Chest: Present: Clear to Auscultation, Good Air Exchange, Other (small non-fluctuant lesion to interior mid-sternal chest wall, tenderness to palpation to sternum). No: Respiratory Distress, Accessory Muscle Use Cardiovascular: Present: Regular Rate and Rhythm, Normal S1, S2. No: Murmurs Abdomen: No: Tenderness, Distention, Peritoneal Signs Back: Present: Normal Inspection Upper Extremity: Present: Normal Inspection. No: Cyanosis, Edema Lower Extremity: Present: Normal Inspection. No: Edema Neurological: Present: GCS=15, CN II-XII Intact, Speech Normal Skin: Present: Warm, Dry, Normal Color, Erythematous (mid-sternal chest wall lesion). No: Rashes Psychiatric: Present: Alert, Oriented x 3, Normal Insight, Normal Concentration <Chuy Hannah - Last Filed: 11/20/18 23:55> Medical Decision Making - Lab Interpretations Microbiology Results: Microbiology Results 11/10/18 12:50 Chest Gram Stain - Final 11/10/18 12:50 Chest Wound Culture - Final Staphylococcus Epidermidis Lab Results: Total Bilirubin 0.4 mg/dL (0.2-1.3) 11/10/18 10:45 AST 23 U/L (17-59) 11/10/18 10:45 ALT 47 U/L (7-56) 11/10/18 10:45 Alkaline Phosphatase 68 U/L (38-126) 11/10/18 10:45 Total Protein 7.1 g/dL (5.8-8.3) 11/10/18 10:45 Albumin 4.2 g/dL (3.0-4.8) 11/10/18 10:45 Globulin 2.9 gm/dL 11/10/18 10:45 Albumin/Globulin Ratio 1.4 (1.1-1.8) 11/10/18 10:45 - RAD Interpretation Radiology Orders: 11/10/18 10:28 CHEST PORTABLE [RAD] Stat - Medication Orders Current Medication Orders: Discontinued Medications Morphine Sulfate (Morphine) 4 mg IVP STAT STA Stop: 11/10/18 11:53 Last Admin: 11/10/18 12:17 Dose: 4 mg MAR Pain Assessment Document 11/10/18 12:17 EQ (Rec: 11/10/18 12:17 EQ [facility] [id number]) Pain Reassessment Is this a pain reassessment? No Sleep Is patient sleeping during reassessment? No Presence of Pain Presence of Pain Yes IVP Administration Document 11/10/18 12:17 EQ (Rec: 11/10/18 12:17 EQ [facility] [id number]) Charges for Administration # of IVP Administrations 1 <Cheyenne Ritter - Last Filed: 11/14/18 17:09> ED Course and Treatment: 11/10/18 10:34 Impression: 32 year old male with lesion to mid-sternal chest region. Differential Diagnoses Includes But Is Not Limited To: -- Plan: -- Chest X-ray --Morphine -- Labs -- Reassess and disposition Prior Visits: Notes and results from previous visits were reviewed. Progress Notes: 11/10/18 11:50 Spoke to surgery resident who will come evaluate patient. 11/10/18 12:07 Surgery resident obtaning consent from patient for I & D. States patient may follow up with Dr. Kp Larsen(surgery) on outpatient basis for wound reevaluation and follow up once discharged. - Lab Interpretations I have reviewed the lab results: Yes - RAD Interpretation Narrative RAD Interpretations (Text): 11/10/2018 10:46 Chest X-ray IMPRESSION: No active disease. Dictator: Majo Sanchez MD Radiology Orders: 11/10/18 10:28 CHEST PORTABLE [RAD] Stat <Chuy Hannah - Last Filed: 11/20/18 23:55> - Scribe Statement The provider has reviewed the documentation as recorded by the Chiquiibe Maykel Cantor Provider Scribe Attestation: All medical record entries made by the Scribe were at my direction and personally dictated by me. I have reviewed the chart and agree that the record accurately reflects my personal performance of the history, physical exam, medical decision making, and the department course for this patient. I have also personally directed, reviewed, and agree with the discharge instructions and disposition. <Chuy Hannah - Last Filed: 11/20/18 23:55> Disposition/Present on Arrival <Cheyenne Ritter - Last Filed: 11/14/18 17:09> - Present on Arrival Any Indicators Present on Arrival: No History of DVT/PE: No History of Uncontrolled Diabetes: No Urinary Catheter: No History of Decub. Ulcer: No History Surgical Site Infection Following: None - Disposition Have Diagnosis and Disposition been Completed?: Yes Disposition Time: 12:29 Patient Plan: Discharge <Chuy Hannah - Last Filed: 11/20/18 23:55> - Disposition Diagnosis: Chest wall abscess Disposition: HOME/ ROUTINE Condition: IMPROVED Discharge Instructions (ExitCare): Boil (DC), Abscess Incision and Drainage (DC) Print Language: JORDANIAN Additional Instructions: Follow up at DR. allen's office to get abscess site evlauted. All medical record entries made by the Scribe were at my direction and personally dictated by me. I have reviewed the chart and agree that the record accurately reflects my personal performance of the history, physical exam, medical decision making, and the department course for this patient. I have also personally directed, reviewed, and agree with the discharge instructions and disposition. Prescriptions: Amoxicillin/Clavulanate [Augmentin 875 MG-125 MG] 1 tab PO Q12H 10 Days #20 tab Referrals: Alan Larsen MD [Staff Provider] - Follow up with primary Jarocho Allen MD [Staff Provider] - Forms: [employer] (Yi), WORK NOTE Addendum Addendum: 11/14/18 17:09 Wound culture showed staph epidermidis growth, resistant to PCN, sensitive to Doxycycline. Augmentin changed to Doxycycline 100mg bid x 10d. Patient aware of change, prescription called in to [facility] on [address] in [place]. <Cheyenne Ritter - Last Filed: 11/14/18 17:09>
--- NOTE | 2018-11-10 10:50 | RAD ---
Date of service: 11/10/2018 HISTORY: Shortness of breath COMPARISON: 04/21/2018. FINDINGS: LUNGS: The lungs are well inflated and clear. PLEURA: No pleural effusions or pneumothorax. CARDIOVASCULAR: The heart is normal in size. No aortic atherosclerotic calcifications present. OSSEOUS STRUCTURES: Within normal limits for the patient's age. VISUALIZED UPPER ABDOMEN: Normal. OTHER FINDINGS: None. IMPRESSION: No active pulmonary disease.
[2018-11-10 10:56] LABS: BASO # 0.02 K/mm3 (0.0-2.0); BASO % 0.2 % (0.0-3.0); EOS # 0.3 (0.0-0.7); EOS % 2.9 % (1.5-5.0); GRAN # 7.51 (1.4-6.5); GRAN % 71.3 % (50.0-68.0); HEMOGLOBIN 15.8 g/dL (14.0-18.0); LYMPH # 2.2 (1.2-3.4); MEAN CELL VOLUME 88.6 fl (80.0-105.0); MEAN CORPUSCULAR HGB CONC 33.8 g/dl (31.0-37.0); MONO # 0.5 (0.1-0.6); MONO % 4.6 % (1.0-6.0); RBC 5.27 10^6/uL (3.5-6.1); RED CELL DISTRIBUTION WIDTH 12.7 % (11.5-14.5); WHITE BLOOD COUNT 10.5 10^3/uL (4.5-11.0)
[2018-11-10 11:05] LABS: ALB/GLOB RATIO 1.4 (1.1-1.8); ALBUMIN 4.2 g/dL (3.0-4.8); ALT/SGPT 47 U/L (7-56); AST/SGOT 23 U/L (17-59); BLOOD UREA NITROGEN 10 mg/dL (7-21); CALCIUM 9.8 mg/dL (8.4-10.5); GFR NON-AFRICAN AMERICAN > 60
[2018-11-10] MEDS ORDERED: Morphine 4 mg/ml ISec IVP STA ×2 (11:52→12:02)
--- NOTE | 2018-11-10 12:48 | PCM.PROC ---
- Incision & Drainage Of Abscess Anesthesia: Lidocaine 1% Used During Procedure: Continuous Pulse Oximetry, Oxygen Prep Used: Sterile Water, Betadine Procedure: Incised W/Scalpel Blade#: (11), Drained Pus, Irrigated Cavity W/Saline, Probed To Break Up Loculations, Packed W/Gauze, Cultures Obtained And Sent To Lab (chest wall absecess [id number]. 20cc abscess )
[2018-11-10 12:53] VITALS: BP 121/77; PULSE 64; O2SAT 98
== END 2018-11-10 12:52 | disposition home or self-care (01) ==
LOC: ED 10:00
DX: L02.213 Cutaneous abscess of chest wall (principal); F17.210 Nicotine dependence, cigarettes, uncomplicated
CPT/HCPCS: 10060; 71045; 80053; 85025; 85651; 87070; 87181; 96374; 99283; J2270

== ENCOUNTER 2019-01-19 08:46 | Emergency (ER) | payer MEDICAID | END 2019-01-19 11:25 | disposition home or self-care (01) | LOC: ED 08:46 ==